=== PATIENT | male | born 1945 | race Caucasian/White ===

== ENCOUNTER → 2019-04-10 | Outpatient (CLI) | payer MEDICARE, OTHER ==
--- NOTE | 2019-04-10 18:36 | PCVCIMAG ---
EXAM: BILATERAL SUPERFICIAL VENOUS DUPLEX INDICATION: Leg pain and swelling. FINDINGS: Right leg: No thrombus in the common femoral, main femoral, or popliteal veins. These veins are compressible. Right Great Saphenous Vein: At the saphenofemoral junction the diameter is 11.9 mm, in the mid thigh it is 7.7 mm, and in the calf it is 7.2 mm. There is significant venous insufficiency/reflux throughout. Venous insufficiency/reflux duration is 3.5 seconds. Right Small Saphenous Vein: At the saphenopopliteal junction the diameter is 3.2 mm, and in the calf it is 3.9 mm. There is not significant venous insufficiency/reflux throughout. Venous insufficiency/reflux duration is 0 seconds. There is not a cranial extension present. Left leg: No thrombus in the common femoral, main femoral, or popliteal veins. These veins are compressible. Left Great Saphenous Vein: At the saphenofemoral junction the diameter is 12.8 mm, in the mid thigh it is 9.7 mm, and in the calf it is 6.4 mm. There is significant venous insufficiency/reflux throughout. Venous insufficiency/reflux duration is 2.9 seconds. Left Small Saphenous Vein: At the saphenopopliteal junction the diameter is 5.2 mm, and in the calf it is 4.6 mm. There is not significant venous insufficiency/reflux throughout. Venous insufficiency/reflux duration is 0 seconds. There is not a cranial extension present. IMPRESSION: Right Great Saphenous Vein: Significant venous insufficiency/reflux is present as noted above. Right Small Saphenous Vein: No significant venous insufficiency/reflux is present as noted above. Left Great Saphenous Vein: Significant venous insufficiency/reflux is present as noted above. Left Small Saphenous Vein: No significant venous insufficiency/reflux is present as noted above. Incidental note is made of venous insufficiency/reflux in the right and left popliteal vein with reflux duration up to 1.2 seconds. LOC:[id number]
--- NOTE | 2019-04-10 18:39 | PCVCIMAG ---
EXAM: BILATERAL LOWER EXTREMITY ARTERIAL DUPLEX INDICATION: Peripheral Arterial Disease. Leg pain. FINDINGS: Right Leg: Common femoral and profunda femoral arteries are patent. Superficial femoral artery and popliteal artery are patent. 70% stenosis mid anterior tibial artery. Peroneal artery is patent. 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 Left Leg: Common femoral and profunda femoral arteries are patent. Superficial femoral artery and popliteal artery are patent. The anterior tibial and peroneal arteries are patent. 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 IMPRESSION: 70% stenosis mid right anterior tibial artery. 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 Occlusion of the distal left posterior tibial artery. Otherwise no flow limiting stenosis in the left lower extremity. LOC:[id number]
== END | disposition home or self-care (01) ==
LOC: PCVCIMAG 12:57
PROVIDERS: ATTEND Family Medicine
DX: I87.2 Venous insufficiency (chronic) (peripheral) (principal)
CPT/HCPCS: 93925; 93970